=== PATIENT | female | born 1985 | race Caucasian/White ===

== ENCOUNTER → 2017-02-10 | Day surgery (SDC) | payer OTHER ==
--- NOTE | 2017-02-07 09:55 | HISTORY & PHYSICAL EXAMINATION ---
DATE OF ADMISSION: 02/10/2017 CHIEF COMPLAINT: Left hand tingling and numbness. HISTORY OF PRESENT ILLNESS: The patient is a 32-year-old female who presented to our office for evaluation of bilateral hand numbness and tingling. She states she had a previous EMG study for her right hand years ago, which confirmed carpal tunnel syndrome. Now more recently, she has been having some increasing symptoms in her left hand. She was scheduled to have an EMG performed, but after a discussion, decision was made to pass on this and just proceed with carpal tunnel release. PAST MEDICAL HISTORY: Depression, acid reflux. PAST SURGICAL HISTORY: Oral surgery, endoscopy. MEDICATIONS: [place] ER 450 mg daily, Paxil 20 mg daily, loratadine 20 mg daily, Protonix 20 mg once daily, sucralfate 1 gram 4 times daily. ALLERGIES: No known drug allergies. SOCIAL HISTORY: She states a [id number] smoking history. PHYSICAL EXAMINATION: GENERAL: Well-nourished, well-developed female who appears her stated age. HEENT: Normocephalic, atraumatic, extraocular movements intact, oropharynx pink and moist. NECK: Supple without adenopathy. LUNGS: Clear to auscultation bilaterally. HEART: Regular rate and rhythm. ABDOMEN: Soft, nontender, nondistended. EXTREMITIES: She complains of numbness/tingling in the thumb through middle finger in the left hand. She has a positive Tinel's and positive Phalen's. ASSESSMENT: Left carpal tunnel syndrome. PLAN: Risks versus benefits were discussed. Consent was obtained. The patient's primary care physician is Dr. Orlando. We will proceed with left carpal tunnel release in the near future.
[~2017-02-10] VITALS: Ht 172.7 cm; Wt 85.0 kg
[~2017-02-10] MED LIST: ATROPINE SULFATE 0.1 MG/ML 5ML SYR IV PRN; BUPIVACAINE 0.5 % 5 MG/1 ML MPF 30ML VIAL INJ ONE; CEFAZOLIN 1000MG/55 ML D5W IV SCH; CLR10 PO; EpHEDrine SULFATE INJ 50 MG/ML AMP IV PRN; FENTANYL CITRATE INJ 50 MCG/1 ML 2 ML VIAL IV PRN; FENTANYL CITRATE INJ 50 MCG/1 ML 2 ML VIAL ONE; HYDR-5688 PO; HYDROCODONE/ACETAMOPHEN 5/325MG TAB PO PRN; LACTATED RINGER'S 1000ML 1,000 ML IV SCH; LIDOCAINE HCL 2% 2 ML VIAL (20MG/ML) ONE; LITH1TAB PO; MIDAZOLAM HCL 1 MG/ML 2ML VIAL ONE; ONDANSETRON INJ 2 MG/ML 2 ML VIAL IV PRN; OXYCODONE/ACETAMINOPHEN 5-325 TAB PO PRN; PARO10TA PO; PROPOFOL IV EMULSION 10 MG/ML 20 ML VIAL IV ONE; SODIUM CHLORIDE 0.9% 1000ML 1,000 ML IV SCH; SUCR1TAB29 PO
[2017-02-10 06:17] VITALS: BP 125/85; PULSE 73; TEMP 36.5; O2SAT 96; Ht 172.7 cm; Wt 85.0 kg
[2017-02-10 06:21] LABS: HEMATOCRIT 42.4 % (37-47); MEAN CELL VOLUME 86.7 fL (80-100); MEAN CORPUSCULAR HEMOGLOBIN 30.7 pg (25-34); MEAN CORPUSCULAR HGB CONC 35.4 g/dl (32-36); MEAN PLATELET VOLUME 9.2 fL (7.4-10.4); PLATELET COUNT 328 K/uL (130-400); RED BLOOD COUNT 4.89 M/uL (4.2-5.4); WHITE BLOOD COUNT 10.65 K/uL (4.8-10.8)
--- NOTE | 2017-02-10 07:00 | History & Physical Bridge Note ---
H&P Re-Evaluation Bridge Note: I have examined the patient, reviewed the History & Physical and in the interval since the performance of the History & Physical I have noted the following changes of clinical significance: No changes noted
[2017-02-10 07:07] LABS: PREG INTERNAL NEGATIVE QC NEG CLEAR BACKGROUND; PREG INTERNAL POSITIVE QC POS CONTROL LINE
[2017-02-10 07:40] VITALS: BP 143/72; PULSE 71; TEMP 36.5; O2SAT 99
--- NOTE | 2017-02-10 07:45 | Discharge Instructions ---
Discharge Instructions Date of Service Feb 10, 2017. Visit Reason for Visit: Left Wrist Carpal Tunnel Syndrome Discharge Discharge Diagnosis / Problem: Left carpal tunnel syndrome Discharge Goals Goal(s): Decrease discomfort, Improve function Activity Recommendations Activity Limitations: as noted below Anesthesia . Post Anesthesia Instructions: If you have had General Anesthesia or IV Sedation: * Do not drive today. * Resume driving when surgeon permits. * Do not make important decisions or sign legal documents today. * Call surgeon for: 1. Temperature elevations greater than 101 degrees F. 2. Uncontrollable pain. 3. Excessive bleeding. 4. Persistent nausea and vomiting. 5. Medication intolerance (nausea, vomiting or rash). * For nausea and vomiting use only clear liquids such as: tea, soda, bouillon until nausea subsides, then gradually increase diet as tolerated. * If you have any concerns or questions, call your surgeon's office. If physician is unavailable and it is an emergency, call 911 or go to the nearest emergency room. . Instructions / Follow-Up Instructions / Follow-Up Maintain dressing x 48 hours then may remove dressing and shower. It's alright to get incision wet in shower but do not submerge in water. Apply light sterile dressing/band-aid as needed. It's alright to leave wound open to the air. Move fingers/hand/ wrist as tolerated. Follow-up with MD in 10-14 days Diet Recommendations Recommended Home Diet: resume previous diet Pending Studies Studies pending at discharge: no Medical Emergencies . Who to Call and When: Medical Emergencies: If at any time you feel your situation is an emergency, please call 911 immediately. . Non-Emergent Contact Non-Emergency issues call your: Surgeon Call Non-Emergent contact if: temperature is above 101.5, your pain is not controlled, wound has increased drainage, wound has increased redness . . "Provider Documentation" section prepared by Dion Galloway PA-C. . [place] Drug Monitoring Program Search Results: patient reviewed within database, no issues identified
[2017-02-10 08:10] VITALS: BP 123/82; PULSE 76; TEMP 36.5; O2SAT 100
--- NOTE | 2017-02-10 08:23 | Anesthesiology Progress Note ---
Anesthesia Post Op Note Date & Time Feb 10, 2017 at 08:23 Vital Signs Vital Signs Past 12 Hours Date Time Temp Pulse Resp B/P (MAP) Pulse Ox O2 Delivery O2 Flow Rate FiO2 02/10/17 06:17 36.5 73 16 125/85 96 Room Air Notes Mental Status: alert / awake / arousable, participated in evaluation Pt Amnestic to Procedure: Yes Nausea / Vomiting: adequately controlled Pain: adequately controlled Airway Patency, RR, SpO2: stable & adequate BP & HR: stable & adequate Hydration State: stable & adequate Anesthetic Complications: no major complications apparent
--- NOTE | 2017-02-10 08:26 | OPERATIVE REPORT ---
DATE OF OPERATION: 02/10/2017 PREOPERATIVE DIAGNOSIS: Left carpal tunnel syndrome. POSTOPERATIVE DIAGNOSIS: Left carpal tunnel syndrome. PROCEDURE: Left carpal tunnel release. SURGEON: Jesus Alberto Lanza MD DESCRIPTION OF PROCEDURE: Following induction of adequate IV sedation, the patient's left arm was prepped and draped in the usual sterile manner. First attention was turned to the distal arm and wrist where l0 mL of 2% Lidocaine without Epinephrine were instilled. First a small portion approximately 3 mL was instilled directly over the median nerve just ulnar to the palmaris longus tendon at the level of the distal crease of the wrist. Next, subcutaneous tissue was instilled with the 2% Lidocaine at the level of the previously planned incision. Limb was exsanguinated and tourniquet was inflated. A longitudinal incision was made in the mid palm. Subcutaneous tissue was bluntly dissected, electrocautery was used for hemostasis. The distal portion of the transverse carpal ligament was identified by identifying the superficial palmar arch and a blunt curved scissor was placed within the carpal canal. The transverse carpal ligament was sharply dissected. Great care was taken to avoid damage to any tissue that appeared to be nerve tissue as in aberrant branch of the motor branch of the median nerve and none was identified. This exposed the median nerve to the level of the distal flexor crease of the wrist. Next subcutaneous dissection was carried out volar and dorsal to the remainder of the transverse carpal ligament proximal to the distal flexor crease of the wrist. Blunt scissor was placed within the carpal canal and further sharp dissection using the blunt scissor was carried into the distal forearm directly visualizing the median nerve at all times. Motor branch of the median nerve was identified and protected and perineurolysis was performed throughout the length of the median nerve. A moderate compression of the median nerve was identified in its mid portion. Floor of the carpal canal was palpated and there were found to be no bony or other protrusions into the carpal canal and there was no significant synovitis noted within the carpus or the carpal canal. Wound was thoroughly irrigated with sterile Saline and was closed using four 4-0 Nylon horizontal mattress sutures. Sterile dressing of 4 x 8's and Kerlix was applied. Tourniquet was deflated. Patient was taken to the Recovery Room in stable and good condition. Patient tolerated the procedure well. Due to the complex nature of the procedure, the entire surgery was performed with the operational assistance of ____BRANDI. The boilermaker's assistant, under direct supervision, was involved in the actual performance of all aspects of the surgical procedure including hemostasis, tissue retraction and incision, instrument management, patient positioning, and wound closure. I attest to the content of the Intraoperative Record and any orders documented therein. Any exception s are noted below.
== END | disposition home or self-care (01) ==
LOC: C.ACU 05:27
DX: G56.02 Carpal tunnel syndrome, left upper limb (principal); K21.9 Gastro-esophageal reflux disease without esophagitis; F32.9 Major depressive disorder, single episode, unspecified; Z79.899 Other long term (current) drug therapy; F17.210 Nicotine dependence, cigarettes, uncomplicated

== ENCOUNTER 2017-02-27 07:03 | Day surgery (SDC) | payer OTHER ==
[2017-02-21 09:16] VITALS: BMI 28.0
--- NOTE | 2017-02-26 14:03 | HISTORY & PHYSICAL EXAMINATION ---
DATE OF ADMISSION: 02/27/2017 CHIEF COMPLAINT: Right hand numbness and tingling. HISTORY OF PRESENT ILLNESS: The patient is a 32-year-old female with complaints of right hand numbness and tingling. She had EMG-confirmed the diagnosis of right carpal tunnel syndrome several years ago. She recently had a left carpal tunnel release and now is scheduled for a right carpal tunnel release. PAST MEDICAL HISTORY: Acid reflux. PAST SURGICAL HISTORY: Left carpal tunnel release as above, endoscopy, oral surgery. MEDICATIONS: [place] ER 450 mg daily, Paxil 20 mg daily, loratadine 20 mg daily, Protonix 20 mg daily, sucralfate 1 gram 4 times daily. ALLERGIES: No known drug allergies. SOCIAL HISTORY AND REVIEW OF SYSTEMS: Noncontributory. PHYSICAL EXAMINATION: GENERAL: Well-nourished, well-developed female who appears her stated age. HEENT: Normocephalic, atraumatic, extraocular movements intact, oropharynx pink and moist. NECK: Supple without adenopathy. LUNGS: Clear to auscultation bilaterally. HEART: Regular rate and rhythm. ABDOMEN: Soft, nontender, nondistended. EXTREMITIES: The right hand demonstrates normal range of motion. There is no evidence of any atrophy. She has a positive Tinel's and a positive Phalen's test. ASSESSMENT: Right wrist carpal tunnel syndrome. PLAN: Risks versus benefits were discussed. Consent was obtained. Will proceed with right carpal tunnel release in the near future.
[~2017-02-27] VITALS: Ht 172.7 cm; Wt 85.0 kg
[~2017-02-27 07:03] MED LIST changes: -ATROPINE SULFATE 0.1 MG/ML 5ML SYR IV PRN; -BUPIVACAINE 0.5 % 5 MG/1 ML MPF 30ML VIAL INJ ONE; -CEFAZOLIN 1000MG/55 ML D5W IV SCH; +CEFAZOLIN 2000 MG/60 ML D5W IV SCH; -EpHEDrine SULFATE INJ 50 MG/ML AMP IV PRN; -FENTANYL CITRATE INJ 50 MCG/1 ML 2 ML VIAL IV PRN; -FENTANYL CITRATE INJ 50 MCG/1 ML 2 ML VIAL ONE; -HYDR-5688 PO; -HYDROCODONE/ACETAMOPHEN 5/325MG TAB PO PRN; -LIDOCAINE HCL 2% 2 ML VIAL (20MG/ML) ONE; -MIDAZOLAM HCL 1 MG/ML 2ML VIAL ONE; -ONDANSETRON INJ 2 MG/ML 2 ML VIAL IV PRN; -OXYCODONE/ACETAMINOPHEN 5-325 TAB PO PRN; -PROPOFOL IV EMULSION 10 MG/ML 20 ML VIAL IV ONE; -SODIUM CHLORIDE 0.9% 1000ML 1,000 ML IV SCH
[2017-02-27] MEDS ORDERED: PROPOFOL IV EMULSION 10 MG/ML 20 ML VIAL IV ONE ×2 (07:11→08:34)
[2017-02-27] MEDS ORDERED: FENTANYL CITRATE INJ 50 MCG/1 ML 2 ML VIAL ONE ×2 (07:11→08:51)
[2017-02-27] MEDS ORDERED: MIDAZOLAM HCL 1 MG/ML 2ML VIAL ONE ×2 (07:11→08:19)
[2017-02-27 07:28] VITALS: BP 127/75; PULSE 87; TEMP 36.5; O2SAT 96; Ht 172.7 cm; Wt 85.0 kg
[2017-02-27] MEDS ORDERED: BUPIVACAINE 0.5 % 5 MG/1 ML MPF 30ML VIAL ONE (08:07)
[2017-02-27 08:19] LABS: HEMATOCRIT 41.6 % (37-47); MEAN CELL VOLUME 86.5 fL (80-100); MEAN CORPUSCULAR HEMOGLOBIN 30.8 pg (25-34); MEAN PLATELET VOLUME 9.6 fL (7.4-10.4); PLATELET COUNT 292 K/uL (130-400); RED BLOOD COUNT 4.81 M/uL (4.2-5.4); WHITE BLOOD COUNT 8.15 K/uL (4.8-10.8)
[2017-02-27] MEDS ORDERED: SODIUM CHLORIDE 0.9% 1000ML 1,000 ML IV SCH (08:25)
[2017-02-27] MEDS ORDERED: HYDR-5688 PO (08:26)
[2017-02-27] MEDS ORDERED: ONDANSETRON INJ 2 MG/ML 2 ML VIAL ONE (08:27)
[2017-02-27] MEDS ORDERED: HYDROCODONE/ACETAMOPHEN 5/325MG TAB PO PRN (08:30)
[2017-02-27] MEDS ORDERED: OXYCODONE/ACETAMINOPHEN 5-325 TAB PO PRN (08:30)
--- NOTE | 2017-02-27 08:30 | Discharge Instructions ---
Discharge Instructions Date of Service Feb 27, 2017. Visit Reason for Visit: Carpal Tunnel Syndrome Wrist Right Discharge Discharge Diagnosis / Problem: Right carpal tunnel syndrome Discharge Goals Goal(s): Decrease discomfort, Improve function Activity Recommendations Activity Limitations: as noted below Anesthesia . Post Anesthesia Instructions: If you have had General Anesthesia or IV Sedation: * Do not drive today. * Resume driving when surgeon permits. * Do not make important decisions or sign legal documents today. * Call surgeon for: 1. Temperature elevations greater than 101 degrees F. 2. Uncontrollable pain. 3. Excessive bleeding. 4. Persistent nausea and vomiting. 5. Medication intolerance (nausea, vomiting or rash). * For nausea and vomiting use only clear liquids such as: tea, soda, bouillon until nausea subsides, then gradually increase diet as tolerated. * If you have any concerns or questions, call your surgeon's office. If physician is unavailable and it is an emergency, call 911 or go to the nearest emergency room. . Instructions / Follow-Up Instructions / Follow-Up Maintain dressing x 48 hours then may remove and shower. Apply light dressing/ band-aid to wound as needed. May use hand/wrist for light daily activities as tolerated Diet Recommendations Recommended Home Diet: resume previous diet Pending Studies Studies pending at discharge: no Medical Emergencies . Who to Call and When: Medical Emergencies: If at any time you feel your situation is an emergency, please call 911 immediately. . Non-Emergent Contact Non-Emergency issues call your: Surgeon Call Non-Emergent contact if: temperature is above 101.5, your pain is not controlled, wound has increased drainage, wound has increased redness . . "Provider Documentation" section prepared by Dion Galloway PA-C. . [place] Drug Monitoring [place] Search Results: patient reviewed within database, no issues identified
--- NOTE | 2017-02-27 08:34 | Anesthesiology Progress Note ---
Anesthesia Post Op Note Date & Time Feb 27, 2017 at 08:34 Vital Signs Pain Intensity: 0 Vital Signs Past 12 Hours Date Time Temp Pulse Resp B/P (MAP) Pulse Ox O2 Delivery O2 Flow Rate FiO2 02/27/17 07:28 36.5 87 16 127/75 (92) 96 Room Air Notes Mental Status: alert / awake / arousable, participated in evaluation Pt Amnestic to Procedure: Yes Nausea / Vomiting: adequately controlled Pain: adequately controlled Airway Patency, RR, SpO2: stable & adequate BP & HR: stable & adequate Hydration State: stable & adequate Anesthetic Complications: no major complications apparent
[2017-02-27 08:37] LABS: MEAN CORPUSCULAR HGB CONC 35.6 g/dl (32-36)
[2017-02-27] MEDS ORDERED: ATROPINE SULFATE 0.1 MG/ML 5ML SYR IV PRN (08:45)
[2017-02-27] MEDS ORDERED: FENTANYL CITRATE INJ 50 MCG/1 ML 2 ML VIAL IV PRN (08:45)
[2017-02-27] MEDS ORDERED: EpHEDrine SULFATE INJ 50 MG/ML AMP IV PRN (08:45)
[2017-02-27 09:25] VITALS: BP 129/84; PULSE 76; TEMP 37.1; O2SAT 97
[2017-02-27] MEDS ORDERED: HYDROCODONE/ACETAMOPHEN 5/325MG TAB ONE (09:42)
[2017-02-27 10:05] VITALS: BP 137/85; PULSE 82; TEMP 37.1; O2SAT 97
--- NOTE | 2017-02-27 11:29 | [facility] Post Operative Brief Note ---
Immediate Operative Summary Operative Date Feb 27, 2017. Pre-Operative Diagnosis Right Wrist Carpal Tunnel Syndrome Post-Operative Diagnosis same Procedure(s) Performed Right Wrist Carpal Tunnel Release Surgeon Dr. Lanza Machinery Mechanic Surgeon(s) none Estimated Blood Loss 0.5ml Findings moderate compression Specimens none per surgeon Disposition Recovery Room / PACU
--- NOTE | 2017-02-27 11:56 | OPERATIVE REPORT ---
DATE OF OPERATION: 02/27/2017 PREOPERATIVE DIAGNOSIS: Left carpal tunnel syndrome. POSTOPERATIVE DIAGNOSIS: Left carpal tunnel syndrome. PROCEDURE: Left carpal tunnel release. SURGEON: Jesus Alberto Lanza MD DESCRIPTION OF PROCEDURE: Following induction of adequate IV sedation, the patient's left arm was prepped and draped in the usual sterile manner. First attention was turned to the distal arm and wrist where l0 mL of 2% Lidocaine without Epinephrine were instilled. First a small portion approximately 3 mL was instilled directly over the median nerve just ulnar to the palmaris longus tendon at the level of the distal crease of the wrist. Next, subcutaneous tissue was instilled with the 2% Lidocaine at the level of the previously planned incision. Limb was exsanguinated and tourniquet was inflated. A longitudinal incision was made in the mid palm. Subcutaneous tissue was bluntly dissected, electrocautery was used for hemostasis. The distal portion of the transverse carpal ligament was identified by identifying the superficial palmar arch and a blunt curved scissor was placed within the carpal canal. The transverse carpal ligament was sharply dissected. Great care was taken to avoid damage to any tissue that appeared to be nerve tissue as in aberrant branch of the motor branch of the median nerve and none was identified. This exposed the median nerve to the level of the distal flexor crease of the wrist. Next subcutaneous dissection was carried out volar and dorsal to the remainder of the transverse carpal ligament proximal to the distal flexor crease of the wrist. Blunt scissor was placed within the carpal canal and further sharp dissection using the blunt scissor was carried into the distal forearm directly visualizing the median nerve at all times. Motor branch of the median nerve was identified and protected and perineurolysis was performed throughout the length of the median nerve. A moderate compression of the median nerve was identified in its mid portion. Floor of the carpal canal was palpated and there were found to be no bony or other protrusions into the carpal canal and there was no significant synovitis noted within the carpus or the carpal canal. Wound was thoroughly irrigated with sterile Saline and was closed using four 4-0 Nylon horizontal mattress sutures. Sterile dressing of 4 x 8's and Kerlix was applied. Tourniquet was deflated. The patient was taken to the Recovery Room in stable and good condition. The patient tolerated the procedure well. Due to the complex nature of the procedure, the entire surgery was performed with the operational assistance of ____BRANDI. The campus administrative assistant, under direct supervision, was involved in the actual performance of all aspects of the surgical procedure including hemostasis, tissue retraction and incision, instrument management, patient positioning, and wound closure. OPERATIVE FINDING: Compression of the median nerve. I attest to the content of the Intraoperative Record and any orders documented therein. Any exception s are noted below.
== END 2017-02-27 10:20 | disposition home or self-care (01) ==
LOC: C.ACU 07:03
DX: G56.01 Carpal tunnel syndrome, right upper limb (principal); K21.9 Gastro-esophageal reflux disease without esophagitis; K58.9 Irritable bowel syndrome, unspecified

== ENCOUNTER → 2017-03-31 | Outpatient (CLI) | payer OTHER ==
[~2017-03-31] MED LIST changes: -CEFAZOLIN 2000 MG/60 ML D5W IV SCH; +HYDR-5688 PO; -LACTATED RINGER'S 1000ML 1,000 ML IV SCH
--- NOTE | 2017-03-31 15:55 | DIAGNOSTIC IMAGING REPORT ---
RIGHT SECOND FINGER 3 VIEWS CLINICAL HISTORY: Second finger injury. FINDINGS: 3 views of the right second finger are obtained. No prior studies are available for comparison at the time of dictation. The skeletal structures are well mineralized. No fracture or dislocation is seen. The second metacarpophalangeal and interphalangeal joints are well-maintained. Mild soft tissue swelling is suggested, greatest over the proximal interphalangeal joint. IMPRESSION: Mild soft tissue swelling. No right second finger fracture is seen. Electronically signed by: Gustavo Stearns M.D. 03/31/2017 3:53 PM Dictated Date/Time: 03/31/2017 3:53 PM
== END | disposition home or self-care (01) ==
LOC: C.RAD 15:18
PROVIDERS: ATTEND Physician Assistant Medical
DX: S69.91XA Unspecified injury of right wrist, hand and finger(s), initial encounter (principal); X58.XXXA Exposure to other specified factors, initial encounter